=== PATIENT | male | born 1970 | race Caucasian/White ===

== ENCOUNTER → 2016-12-01 | Outpatient (CLI) | payer BC ==
[~2016-12-01] MED LIST: DOXY100C76 PO; MRC50 PO; PRLSR20 PO; VALA1TAB PO
[2016-12-01 14:45] LABS: BASO % 0.4 %; BASO ABS # 0.02 K/uL (0-0.2); COMPLETE YES; EOS % 2.7 %; HEMATOCRIT 43.7 % (42-52); IG% 0.2 %; LYMPH % 36.1 %; LYMPH ABS # 1.89 K/uL (1.2-3.4); MEAN CELL VOLUME 106.8 fL (80-100); MEAN CORPUSCULAR HEMOGLOBIN 38.4 pg (25-34); MEAN CORPUSCULAR HGB CONC 35.9 g/dl (32-36); MEAN PLATELET VOLUME 8.9 fL (7.4-10.4); MONO % 9.4 %; NEUT % 51.2 %; PLATELET COUNT 324 K/uL (130-400); RED BLOOD COUNT 4.09 M/uL (4.7-6.1); WHITE BLOOD COUNT 5.24 K/uL (4.8-10.8)
[2016-12-01 15:05] LABS: ALB/GLOB RATIO 0.8 (0.9-2); ALKALINE PHOSPHATASE 91 U/L (45-117); AST/SGOT 16 U/L (15-37); BLOOD UREA NITROGEN 12 mg/dl (7-18); CALCIUM 8.8 mg/dl (8.5-10.1); CARBON DIOXIDE 24 mmol/L (21-32); CHLORIDE 108 mmol/L (98-107); GLUCOSE 160 mg/dl (70-99); POTASSIUM 4.1 mmol/L (3.5-5.1); SODIUM 140 mmol/L (136-145)
[2016-12-01 15:10] LABS: ALT/SGPT 37 U/L (12-78); C-REACTIVE PROTEIN 0.98 mg/dl (0-0.29)
== END | disposition home or self-care (01) ==
LOC: C.LAB1850 13:15
PROVIDERS: ATTEND Registered Nurse
DX: K51.90 Ulcerative colitis, unspecified, without complications (principal)

== ENCOUNTER → 2016-12-29 | Outpatient (CLI) | payer BC ==
--- NOTE | 2016-12-29 14:52 | DIAGNOSTIC IMAGING REPORT ---
ABD/PELVIS IV AND ORAL CONT CT DOSE: 1134.68 mGy.cm HISTORY: Pain K51.90 Ulcerative [id number] Bilateral lower abdominal pain TECHNIQUE: Multiaxial CT images of the abdomen and pelvis were performed following the use of intravenous and oral contrast. COMPARISON STUDY: None. FINDINGS: Lung bases are clear. Mild fatty replacement of the liver. The very subtle outer cortical scarring of liver. Spleen shows no evidence for enlargement. Kidneys enhance uniformly. They are negative for hydronephrosis. Gallbladder is negative for distention. Retroperitoneum shows no significant adenopathy. Evaluation of the pelvis demonstrates significant wall thickening of the sigmoid with moderate pericolonic infiltrative change. Less prominent findings are seen in the mid to distal descending colonic region. Remainder of the colon is unremarkable in overall configuration although scattered diverticuli are present. There is no evidence for abscess collection or obstructive change. IMPRESSION: 1. Acute sigmoid diverticulitis. Less prominent diverticulitis involving the distal descending colon 2. Moderate pericolonic infiltrative change. 3. No evidence for abscess collection or obstruction. 4. Fatty replacement of liver. The above report was generated using voice recognition software. It may contain grammatical, syntax or spelling errors. Electronically signed by: Jose Rivera M.D. 12/29/2016 2:51 PM Dictated Date/Time: 12/29/2016 2:48 PM
== END | disposition home or self-care (01) ==
LOC: C.CTS 10:39
PROVIDERS: ATTEND Registered Nurse
DX: K51.90 Ulcerative colitis, unspecified, without complications (principal); K57.32 Diverticulitis of large intestine without perforation or abscess without bleeding; K76.0 Fatty (change of) liver, not elsewhere classified

== ENCOUNTER → 2017-05-28 | Outpatient (CLI) | payer BC ==
[2017-05-28 14:32] LABS: BASO % 0.4 %; BASO ABS # 0.02 K/uL (0-0.2); COMPLETE YES; EOS % 2.3 %; HEMATOCRIT 44.8 % (42-52); IG% 0.4 %; LYMPH % 34.4 %; LYMPH ABS # 1.82 K/uL (1.2-3.4); MEAN CELL VOLUME 108.2 fL (80-100); MEAN CORPUSCULAR HEMOGLOBIN 38.6 pg (25-34); MEAN CORPUSCULAR HGB CONC 35.7 g/dl (32-36); MEAN PLATELET VOLUME 9.1 fL (7.4-10.4); MONO % 11.3 %; NEUT % 51.2 %; PLATELET COUNT 290 K/uL (130-400); RED BLOOD COUNT 4.14 M/uL (4.7-6.1); WHITE BLOOD COUNT 5.29 K/uL (4.8-10.8)
[2017-05-28 15:07] LABS: ALT/SGPT 40 U/L (12-78); AST/SGOT 23 U/L (15-37); BLOOD UREA NITROGEN 7 mg/dl (7-18); BUN/CREATININE RATIO 7.2 (10-20); C-REACTIVE PROTEIN 2.14 mg/dl (0-0.29); CALCIUM 9.2 mg/dl (8.5-10.1); CARBON DIOXIDE 26 mmol/L (21-32); CHLORIDE 105 mmol/L (98-107); CREATININE 0.99 mg/dl (0.60-1.40); GLUCOSE 73 mg/dl (70-99); SODIUM 134 mmol/L (136-145)
[2017-05-28 15:10] LABS: ALB/GLOB RATIO 0.8 (0.9-2); ALKALINE PHOSPHATASE 77 U/L (45-117)
== END | disposition home or self-care (01) ==
LOC: C.LAB 13:41
PROVIDERS: ATTEND Registered Nurse
DX: K57.92 Diverticulitis of intestine, part unspecified, without perforation or abscess without bleeding (principal)

== ENCOUNTER → 2017-06-04 | Outpatient (CLI) | payer BC ==
[~2017-06-04] MED LIST changes: +OPTIRAY 320 IV PRN
--- NOTE | 2017-06-04 12:26 | DIAGNOSTIC IMAGING REPORT ---
ABD/PELVIS IV AND ORAL CONT CLINICAL HISTORY: 46 years-old Male presenting with K51.90 Ulcerative [id number] Acute [id number] Abdom. TECHNIQUE: Multidetector CT of the abdomen and pelvis was performed after the administration of oral and intravenous contrast. IV contrast: 93 mL of Optiray 320. A dose lowering technique was used consistent with the principles of ALARA (as low as reasonably achievable). COMPARISON: 12/29/2016. CT DOSE (mGy.cm): The estimated cumulative dose is 1035.98 mGycm. FINDINGS: Organisation And Methods Analyst topogram: Unremarkable. Lung bases: 5 mm solid subpleural nodule in the posterior basal right lower lobe (series 3 image 85), unchanged. Solid subpleural 7 mm nodule in the lingula (series 3 image 3), not included in the [id number] on prior exam. Normal heart size. No pericardial or pleural effusion. Liver: Normal morphology. No liver lesion. Patent hepatic vasculature. Biliary: No intrahepatic or extrahepatic biliary ductal dilatation. Normal gallbladder. Pancreas: Mild parenchymal atrophy. Spleen: Normal. Spinal noted. Adrenal glands: Normal. Kidneys and ureters: Subcentimeter cyst noted at the lower pole the right kidney. No nephrolithiasis. Normal enhancement of the renal parenchyma. No hydronephrosis. Normal ureters. Bladder: Allowing for underdistention, there is circumferential bladder wall thickening. Pelvic organs: Prostate and seminal vesicles normal. Bowel: Diverticulosis of the sigmoid colon with wall thickening and pericolonic fat stranding in the proximal sigmoid colon. Diverticulosis also noted in the descending colon. The appendix is normal. No bowel obstruction. Duodenal diverticulum noted at the level of the pancreatic head. Peritoneal cavity: No free fluid or intraperitoneal gas. Lymph nodes: No enlarged lymph nodes in the abdomen or pelvis. Vasculature: Aorta and IVC patent and normal in caliber. Abdominal wall: Normal. Musculoskeletal: Normal. IMPRESSION: 1. Findings consistent with acute uncomplicated diverticulitis of the sigmoid colon. No CT evidence of conrado perforation or abscess. 2. Circumferential bladder wall thickening could suggest chronic outlet obstruction or cystitis. Potentially this could be secondary to the adjacent diverticulitis. 3. Solid pulmonary nodules measuring up to 7 mm. Follow-up per [employer] Society 2017 recommendations below. Please refer to below summary of Fleischner Society 2017 recommendations for follow-up of incidental CT nodules (H MacMahon, et al. Guidelines for management of incidental pulmonary nodules detected on CT images: From the Fleischner Society 2017. Radiology 2017; 284: 228-243.) SOLID NODULES Single nodule; size < 6 mm * Low risk patients: No routine follow-up * High risk patients: Optional CT at 12 months Single nodule; size 6-8 mm * Low risk patients: CT at 6-12 months, then consider CT at 18-24 months * High risk patients: CT at 6-12 months, then at 18-24 months Single nodule; size > 8 mm * Either low or high risk patients: Considered CT at 3 months, PET/CT, or tissue sampling Multiple nodules; size < 6 mm * Low risk patients: No routine follow up * High risk patients: Optional CT at 12 months Multiple nodules; size 6-8 mm * Low risk patients: CT at 3-6 months, then consider CT at 18-24 months * High risk patients: CT at 3-6 months, then at 18-24 months Multiple nodules; size > 8 mm * Low risk patients: CT at 3-6 months, then consider at 18-24 months * High risk patients: CT at 3-6 months, then at 18-24 months Note: These guidelines apply to incidental nodules. These guidelines do not apply to patients younger than 35 years, immunocompromised patients, or patients with cancer. * Low risk patients: Minimal or absent history of smoking and/or other known risk factors * High risk patients: History of smoking, exposure to other carcinogens, emphysema, fibrosis, upper lobe location, family history of lung cancer, etc. * If a nodule up to 8 mm is partly solid or is ground glass, further follow-up is required after 24 months to exclude possible slow growing adenocarcinoma. SUBSOLID NODULES Single ground-glass nodule * Nodule size < 6 mm: No routine follow-up * Nodule size > or = 6 mm: CT at 6-12 months to confirm persistence, then CT every 2 years until 5 years Single part-solid nodule * Nodule size < 6 mm: No routine follow-up * Nodules size > or = 6 mm: CT at 3-6 months to confirm persistence. If unchanged and solid component remains < 6 mm, annual CT should be performed for 5 years Multiple nodules * Nodule size < 6 mm: CT at 3-6 months. If stable, consider CT at 2 and 4 years. * Nodules size > or = 6 mm: CT at 3-6 months. Subsequent management based on the most suspicious nodule(s) Electronically signed by: Kris High M.D. 06/04/2017 12:24 PM Dictated Date/Time: 06/04/2017 12:08 PM
== END | disposition home or self-care (01) ==
LOC: C.CTS 09:14
PROVIDERS: ATTEND Registered Nurse
DX: K51.90 Ulcerative colitis, unspecified, without complications (principal); R10.32 Left lower quadrant pain; Z87.19 Personal history of other diseases of the digestive system; R91.1 Solitary pulmonary nodule